=== PATIENT | male | born 1995 | race Two or more races ===

== ENCOUNTER 2018-08-16 16:35 | Emergency (ER) | payer OTHER ==
[~2018-08-16] VITALS: Ht 167.6 cm; Wt 95.3 kg
[2018-08-16 16:44] VITALS: Ht 167.6 cm; Wt 95.3 kg
[2018-08-16 19:46] VITALS: BP 139/76
== END 2018-08-16 19:46 | disposition home or self-care (01) ==
LOC: ED 16:35
DX: S61.011A Laceration without foreign body of right thumb without damage to nail, initial encounter (principal); W23.0XXA Caught, crushed, jammed, or pinched between moving objects, initial encounter; Y93.89 Activity, other specified; Y92.89 Other specified places as the place of occurrence of the external cause; Y99.8 Other external cause status
CPT/HCPCS: 90715; J0690; J1885; J2001; Q0092

== ENCOUNTER 2018-08-18 20:06 | Emergency (ER) | payer OTHER ==
[~2018-08-18] VITALS: Ht 167.6 cm; Wt 83.9 kg
[2018-08-18 20:12] VITALS: Ht 167.6 cm; Wt 83.9 kg
[2018-08-18 21:03] VITALS: BP 130/84
== END 2018-08-18 21:03 | disposition home or self-care (01) ==
LOC: ED 20:06
DX: S61.011D Laceration without foreign body of right thumb without damage to nail, subsequent encounter (principal); X58.XXXD Exposure to other specified factors, subsequent encounter

== ENCOUNTER 2018-09-03 17:17 | Emergency (ER) | payer OTHER ==
[~2018-09-03] VITALS: Ht 167.6 cm; Wt 99.8 kg
[2018-09-03 17:34] VITALS: BP 133/72; Ht 167.6 cm; Wt 99.8 kg
== END 2018-09-03 18:21 | disposition home or self-care (01) ==
LOC: ED 17:17
DX: S61.011D Laceration without foreign body of right thumb without damage to nail, subsequent encounter (principal); X58.XXXD Exposure to other specified factors, subsequent encounter